=== PATIENT | male | born 1945 | race Caucasian/White ===

== ENCOUNTER → 2016-05-20 | Outpatient (CLI) | payer OTHER ==
[2016-05-20 13:28] LABS: ALT/SGPT 28 U/L (12-78); BLOOD UREA NITROGEN 10 mg/dl (7-18); BUN/CREATININE RATIO 12.8 (10-20); CALCIUM 9.4 mg/dl (8.5-10.1); CARBON DIOXIDE 26 mmol/L (21-32); CHLORIDE 106 mmol/L (98-107); CHOLESTEROL 195 mg/dl (0-200); CREATININE 0.81 mg/dl (0.60-1.40); GLUCOSE 130 mg/dl (70-99); POTASSIUM 4.3 mmol/L (3.5-5.1); SODIUM 139 mmol/L (136-145); TRIGLYCERIDES 192 mg/dl (0-150); VERY LOW DENSITY LIPOPROT CALC 38 mg/dl
[2016-05-20 13:31] LABS: ALB/GLOB RATIO 1.1 (0.9-2); ALKALINE PHOSPHATASE 110 U/L (45-117); AST/SGOT 13 U/L (15-37); CHOLESTEROL/HDL RATIO 7.2; HDL CHOLESTEROL 27 mg/dl; LDL CHOLESTEROL CALCULATED 130 mg/dl
== END | disposition home or self-care (01) ==
LOC: C.LABPVFM 07:52
PROVIDERS: ATTEND Nurse Practitioner Family
DX: R73.01 Impaired fasting glucose (principal); E78.6 Lipoprotein deficiency

== ENCOUNTER → 2016-05-24 | Outpatient (CLI) | payer OTHER ==
[2016-05-25 07:12] LABS: ESTIMATED AVERAGE GLUCOSE 131 mg/dl; HA1C FLAG Normal (Normal)
--- NOTE | 2016-05-30 12:11 | CODING QUERY MEDICAL NECESSITY ---
SUPPORTING DIAGNOSIS NEEDED A supporting diagnosis is required for the test/procedure performed on this patient in order for us to be reimbursed by the patient's insurance. Please provide a supporting diagnosis for the following test/procedure listed below next to the test name along with your signature. *If there is no additional diagnosis for this patient that would support the following test/procedure please document that below next to the test/procedure. Test(s)/Procedure(s) that require a supporting diagnosis: DOS 05/24 * Vitamin D DIAGNOSIS: Provider Signature: Date: Thank you Jazz [facility] Health Information Management Once completed, please kindly fax back to [phone] For questions please call [phone]
== END | disposition home or self-care (01) ==
LOC: C.LABPVFM 11:15
PROVIDERS: ATTEND Nurse Practitioner Family
DX: R73.01 Impaired fasting glucose (principal); Z00.00 Encounter for general adult medical examination without abnormal findings; E55.9 Vitamin D deficiency, unspecified

== ENCOUNTER → 2016-05-30 | Outpatient (CLI) | payer OTHER ==
--- NOTE | 2016-05-30 10:22 | DIAGNOSTIC IMAGING REPORT ---
ULTRASOUND EXAM AAA SCREEN CLINICAL HISTORY: Nicotine dependence. Screening for abdominal aortic aneurysm. COMPARISON STUDY: No previous studies for comparison. FINDINGS: The caliber of the proximal abdominal aorta is normal, measuring 2.1 x 2 cm. There is mild aneurysmal dilatation of the mid abdominal aorta, measuring 3.1 x 3.2 cm. The caliber of the distal abdominal aorta and the proximal bilateral common iliac arteries is normal. There is moderate plaque of the abdominal aorta. 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 Electronically signed by: Juan Lockett M.D. 05/30/2016 10:21 AM Dictated Date/Time: 05/30/2016 10:19 AM
--- NOTE | 2016-05-30 10:30 | DIAGNOSTIC IMAGING REPORT ---
BILATERAL CAROTID DOPPLER STUDY HISTORY: Carotid bruit R09.89 Left carotid [id number] COMPARISON: None. TECHNIQUE: Real-time, grayscale, and color Doppler sonography of the carotid arteries was performed. Imaging reviewed in the transverse and longitudinal planes. All measurements were calculated based on NASCET criteria. FINDINGS: Antegrade flow is seen in the bilateral vertebral arteries. The brachial pressures are hemodynamically similar. Considerable plaque formation bilaterally The peak systolic velocity within the right ICA is 1 and. The right systolic ratio is 0 point. The peak systolic velocity within the left ICA is 124. The left systolic ratio is 1.8. High-grade stenotic changes of the external carotid arteries bilaterally IMPRESSION: Significant plaque formation bilaterally. No significant stenotic process of the common or internal carotid arteries. 70-80% narrowing of the external carotid arteries bilaterally Electronically signed by: Misha Long M.D. 05/30/2016 10:29 AM Dictated Date/Time: 05/30/2016 10:09 AM
== END | disposition home or self-care (01) ==
LOC: C.ULTR 09:05
PROVIDERS: ATTEND Nurse Practitioner Family
DX: F17.200 Nicotine dependence, unspecified, uncomplicated (principal); R09.89 Other specified symptoms and signs involving the circulatory and respiratory systems; I65.23 Occlusion and stenosis of bilateral carotid arteries

== ENCOUNTER → 2016-07-15 | Outpatient (CLI) | payer OTHER ==
[2016-07-15 13:30] LABS: ESTIMATED AVERAGE GLUCOSE 126 mg/dl; HA1C FLAG Normal (Normal)
[2016-07-15 13:40] LABS: CALCIUM 9.4 mg/dl (8.5-10.1)
[2016-07-15 13:43] LABS: ALT/SGPT 31 U/L (12-78); AST/SGOT 18 U/L (15-37); BLOOD UREA NITROGEN 13 mg/dl (7-18); BUN/CREATININE RATIO 16.4 (10-20); CARBON DIOXIDE 27 mmol/L (21-32); CHLORIDE 107 mmol/L (98-107); CHOLESTEROL 99 mg/dl (0-200); CREATININE 0.81 mg/dl (0.60-1.40); GLUCOSE 122 mg/dl (70-99); POTASSIUM 4.5 mmol/L (3.5-5.1); SODIUM 139 mmol/L (136-145); TRIGLYCERIDES 87 mg/dl (0-150); VERY LOW DENSITY LIPOPROT CALC 17 mg/dl
[2016-07-15 13:46] LABS: ALB/GLOB RATIO 1.1 (0.9-2); ALKALINE PHOSPHATASE 92 U/L (45-117); CHOLESTEROL/HDL RATIO 3.4; HDL CHOLESTEROL 29 mg/dl; LDL CHOLESTEROL CALCULATED 53 mg/dl
== END | disposition home or self-care (01) ==
LOC: C.LABPVFM 08:13
PROVIDERS: ATTEND Nurse Practitioner Family
DX: R73.01 Impaired fasting glucose (principal); I10 Essential (primary) hypertension; E78.5 Hyperlipidemia, unspecified; E55.9 Vitamin D deficiency, unspecified

== ENCOUNTER → 2016-12-12 | Outpatient (CLI) | payer OTHER ==
--- NOTE | 2016-12-12 10:22 | DIAGNOSTIC IMAGING REPORT ---
CT LUNG SCREENING, LOW DOSE WITH COMPUTER-AIDED DETECTION (CAD) CLINICAL HISTORY: 71 years-old Male presenting with 1 year follow-up for lung cancer screening, emphysema, history of smoking. CT DOSE (mGy.cm): The estimated cumulative dose is 97.70 mGy.cm. TECHNIQUE: Low-dose helical CT was acquired without intravenous contrast from lung apices to bases and reconstructed at 2.5 mm every 2 mm. Computer-Aided detection (CAD) was utilized for this study. A dose lowering technique was used consistent with the principles of ALARA (as low as reasonably achievable). COMPARISON: 01/03/2016. FINDINGS: Production Line Technician topogram: Unremarkable. On soft tissue windows, normal thyroid and thoracic inlet. Subcentimeter mediastinal lymph nodes unchanged from prior and possibly reactive. Evaluation of the osman limited in the absence of intravenous contrast. Atherosclerosis of the aorta. Coronary artery and aortic valve calcification. Normal heart size. No pericardial or pleural effusion. Hypodensities in the left hepatic lobe, indeterminate but likely hepatic cysts, unchanged. Borderline hepatic steatosis. On lung windows, paraseptal emphysema noted. Mild apical centrilobular emphysema. Mosaic attenuation could suggest small airways disease. Calcified granulomas. Minimal dependent atelectasis. Mild bronchial wall thickening. Airways patent. On bone windows, deformities of several posterior left ribs from prior fractures. Osteopenia. CAD FINDINGS: Overall Lung RADS Category: 1 Lung RADS Management Recommendation: Lung-RADS 1: Continue annual screening in 12 months. Lung RADS Follow Up Date: 2017-12-12 Lung RADS Nodule ID: IMPRESSION: 1. No new pulmonary nodule. Annual screening for lung cancer recommended in 12 months. 2. Emphysema. Electronically signed by: Aj Sullivan M.D. 12/12/2016 10:21 AM Dictated Date/Time: 12/12/2016 10:12 AM
== END | disposition home or self-care (01) ==
LOC: C.CTS 10:00
PROVIDERS: ATTEND Family Medicine
DX: Z87.891 Personal history of nicotine dependence (principal); J43.9 Emphysema, unspecified